=== PATIENT | female | born 1985 | race Caucasian/White ===

== ENCOUNTER 2023-10-05 10:01 | Outpatient (RCR) | payer BC, SELFPAY | END 2023-10-05 23:59 | disposition home or self-care (01) | LOC: RPT 10:01 | PROVIDERS: ATTENDING PHYSICIAN Advanced Practice Midwife; FAMILY PHYSICIAN Nurse Practitioner Adult Health | DX: M62.00 Separation of muscle (nontraumatic), unspecified site (principal); N81.84 Pelvic muscle wasting; R10.33 Periumbilical pain; M62.89 Other specified disorders of muscle; N39.3 Stress incontinence (female) (male); Z73.6 Limitation of activities due to disability | CPT/HCPCS: 97110; 97112; 97162; 97530 ==

== ENCOUNTER → 2023-10-11 15:56 | Outpatient (REF) | payer BC, SELFPAY ==
[2023-10-11 16:56] LABS: % Basophils 0.4 % (0-2); % Eosinophils 0.7 % (0-6); % Immature Granulocytes 0.2 % (0-0.5); % Lymphocytes 33.3 % (20.5-51.1); % Monocytes 8.4 % (1.7-9.3); Absolute Lymphocytes 1.8 10^3/uL (1.2-3.4); Absolute Monocytes 0.5 10^3/uL (0.1-0.6); Absolute Neutrophils 3.1 10^3/uL (1.4-6.5); Hematocrit 33.3 % (37.0-47.0); Hemoglobin 11.5 g/dL (12.0-16.0); Mean Corp Hgb Conc. 34.5 g/dL (33.0-37.0); Mean Corpuscular Hgb 31.4 pg (27.0-31.0); Mean Platelet Volume 9.9 fL (7.4-10.4); Nucleated Red Blood Cells % 0 %; Platelet Count 265 10^3/uL (130-400); Red Blood Cell Count 3.66 10^6/uL (4.20-5.40); Red Cell Dist. Width 11.8 % (11.5-14.5); White Blood Cell Count 5.4 10^3/uL (4.8-10.8)
[2023-10-11 16:57] LABS: Urine Albumin Negative (Neg - Trace); Urine Bilirubin Negative (Negative); Urine Character Clear (Clear); Urine Color Yellow; Urine Glucose Negative (Negative); Urine Ketone Negative (Negative); Urine Leukocyte Negative (Negative); Urine Nitrite Negative (Negative); Urine Occult Blood Negative (Negative); Urine Specific Gravity 1.025 (<1.030); Urine Urobilinogen Negative (Neg - 1+)
[2023-10-11 17:37] LABS: Vitamin D, 25-OH*** 34.9 ng/mL (30-80)
[2023-10-11 17:47] LABS: Rubella Positive
[2023-10-11 17:52] LABS: Hepatitis B Surface Antigen Negative (Negative)
[2023-10-11 18:10] LABS: Hepatitis C Antibody Negative (Negative)
[2023-10-11 18:18] LABS: HIV Combo Negative (Negative)
[2023-10-11 18:26] LABS: Folate 18.7 ng/ml (2.76-20); Vitamin B12 465 pg/ml (239-931)
[2023-10-14 17:18] LABS: Syphilis/T. pallidum Ab Reflex Negative (Negative)
== END ==
LOC: REG 15:56
PROVIDERS: ATTENDING PHYSICIAN Nurse Practitioner Adult Health; FAMILY PHYSICIAN Advanced Practice Midwife
DX: Z34.90 Encounter for supervision of normal pregnancy, unspecified, unspecified trimester (principal); F32.0 Major depressive disorder, single episode, mild; E53.9 Vitamin B deficiency, unspecified
CPT/HCPCS: 36415; 80055; 81003; 82306; 82607; 82746; 84702; 86803; 86850; 86900; 86901; 87086; 87389

== ENCOUNTER → 2023-10-20 08:57 | Outpatient (REF) | payer BC, SELFPAY | LOC: PNTC 08:57 | PROVIDERS: Advanced Practice Midwife; ATTENDING PHYSICIAN Obstetrics & Gynecology | DX: Z36.0 Encounter for antenatal screening for chromosomal anomalies (principal); Z36.82 Encounter for antenatal screening for nuchal translucency | CPT/HCPCS: 36415; 76801; 76813 ==

== ENCOUNTER 2023-11-02 06:54 | Outpatient (RCR) | payer BC, SELFPAY | END 2023-11-02 23:59 | disposition home or self-care (01) | LOC: RPT 06:54 | PROVIDERS: ATTENDING PHYSICIAN Advanced Practice Midwife; FAMILY PHYSICIAN Nurse Practitioner Adult Health | DX: M62.00 Separation of muscle (nontraumatic), unspecified site (principal); N81.84 Pelvic muscle wasting; R10.33 Periumbilical pain; M62.89 Other specified disorders of muscle; N39.3 Stress incontinence (female) (male); Z73.6 Limitation of activities due to disability | CPT/HCPCS: 97110; 97112 ==

== ENCOUNTER → 2023-12-02 11:49 | Outpatient (REF) | payer BC, SELFPAY | LOC: REG 11:49 | PROVIDERS: ATTENDING PHYSICIAN Advanced Practice Midwife; FAMILY PHYSICIAN Nurse Practitioner Adult Health | DX: Z34.90 Encounter for supervision of normal pregnancy, unspecified, unspecified trimester (principal) | CPT/HCPCS: 36415; 82105 ==

== ENCOUNTER → 2023-12-05 11:15 | Outpatient (REF) | payer BC, SELFPAY ==
[2023-12-07 17:08] LABS: AFP Multiple of Median (MoM) 1.29; Dating Other; Family Neural Tube Defect Hx No; Insulin Req Maternal Diabetes No; Maternal Age at Delivery 37.6 yr; Maternal Race Nonblack; Maternal Screen Interpretation Screen Neg; Maternal Weight 167.0 lbs.; Number of Fetuses Singleton; Patient's AFP Concentration 62 ng/mL; Smoking No
== END ==
LOC: REG 11:15
PROVIDERS: ATTENDING PHYSICIAN Advanced Practice Midwife
DX: Z34.90 Encounter for supervision of normal pregnancy, unspecified, unspecified trimester (principal)
CPT/HCPCS: 82105

== ENCOUNTER 2023-12-05 12:15 | Outpatient (RCR) | payer BC, SELFPAY | END 2023-12-05 23:59 | disposition home or self-care (01) | LOC: RPT 12:15 | PROVIDERS: ATTENDING PHYSICIAN Advanced Practice Midwife; FAMILY PHYSICIAN Nurse Practitioner Adult Health | DX: N81.84 Pelvic muscle wasting (principal); M62.00 Separation of muscle (nontraumatic), unspecified site; M62.89 Other specified disorders of muscle; N39.3 Stress incontinence (female) (male); Z73.6 Limitation of activities due to disability | CPT/HCPCS: 97110; 97140 ==

== ENCOUNTER → 2023-12-19 18:50 | Outpatient (REF) | payer BC, SELFPAY | LOC: CLAB 18:50 | PROVIDERS: ATTENDING PHYSICIAN Nurse Practitioner Adult Health | DX: J02.9 Acute pharyngitis, unspecified (principal) | CPT/HCPCS: 87070 ==

== ENCOUNTER → 2023-12-20 08:59 | Outpatient (REF) | payer BC, SELFPAY | LOC: PNTC 08:59 | PROVIDERS: ATTENDING PHYSICIAN Advanced Practice Midwife | DX: O09.529 Supervision of elderly multigravida, unspecified trimester (principal) | CPT/HCPCS: 76811 ==

== ENCOUNTER 2024-01-05 06:33 | Outpatient (RCR) | payer BC, SELFPAY | END 2024-01-05 23:59 | disposition home or self-care (01) | LOC: RPT 06:33 | PROVIDERS: ATTENDING PHYSICIAN Advanced Practice Midwife; FAMILY PHYSICIAN Nurse Practitioner Adult Health | DX: M62.00 Separation of muscle (nontraumatic), unspecified site (principal); N81.84 Pelvic muscle wasting; R10.33 Periumbilical pain; Z73.6 Limitation of activities due to disability; M62.89 Other specified disorders of muscle; N39.3 Stress incontinence (female) (male) | CPT/HCPCS: 97110; 97112 ==

== ENCOUNTER 2024-01-30 13:15 | Outpatient (RCR) | payer BC, SELFPAY | END 2024-01-30 23:59 | disposition home or self-care (01) | LOC: RPT 13:15 | PROVIDERS: ATTENDING PHYSICIAN Advanced Practice Midwife; FAMILY PHYSICIAN Nurse Practitioner Adult Health | DX: N81.84 Pelvic muscle wasting (principal); M62.08 Separation of muscle (nontraumatic), other site | CPT/HCPCS: 97110; 97112 ==

== ENCOUNTER → 2024-02-01 07:55 | Outpatient (REF) | payer BC, SELFPAY ==
[2024-02-01 09:41] LABS: % Basophils 0.4 % (0-2); % Eosinophils 0.9 % (0-6); % Immature Granulocytes 0.2 % (0-0.5); % Lymphocytes 27.5 % (20.5-51.1); % Monocytes 5.8 % (1.7-9.3); % Neutrophils 65.2 % (42.2-75.2); Absolute Lymphocytes 1.3 10^3/uL (1.2-3.4); Absolute Monocytes 0.3 10^3/uL (0.1-0.6); Hematocrit 33.4 % (37.0-47.0); Hemoglobin 11.2 g/dL (12.0-16.0); Mean Corp Hgb Conc. 33.5 g/dL (33.0-37.0); Mean Corpuscular Hgb 32.2 pg (27.0-31.0); Mean Platelet Volume 10.1 fL (7.4-10.4); Nucleated Red Blood Cells % 0 %; Platelet Count 263 10^3/uL (130-400); Red Blood Cell Count 3.48 10^6/uL (4.20-5.40); Red Cell Dist. Width 12.9 % (11.5-14.5); White Blood Cell Count 4.6 10^3/uL (4.8-10.8)
[2024-02-01 11:31] LABS: 1 Hour after 50gm 113 mg/dl
[2024-02-03 16:30] LABS: Syphilis/T. pallidum Ab Reflex Negative (Negative)
== END ==
LOC: REG 07:55
PROVIDERS: ATTENDING PHYSICIAN Advanced Practice Midwife; FAMILY PHYSICIAN Nurse Practitioner Adult Health
DX: Z34.90 Encounter for supervision of normal pregnancy, unspecified, unspecified trimester (principal)
CPT/HCPCS: 36415; 82950; 85025; 86780

== ENCOUNTER → 2024-02-06 09:58 | Outpatient (REF) | payer BC, SELFPAY | LOC: PNTC 09:58 | PROVIDERS: ATTENDING PHYSICIAN Advanced Practice Midwife | DX: O09.529 Supervision of elderly multigravida, unspecified trimester (principal) | CPT/HCPCS: 76816 ==

== ENCOUNTER 2024-02-20 08:31 | Outpatient (RCR) | payer BC, SELFPAY | END 2024-02-20 23:59 | disposition home or self-care (01) | LOC: RPT 08:31 | PROVIDERS: ATTENDING PHYSICIAN Advanced Practice Midwife; FAMILY PHYSICIAN Nurse Practitioner Adult Health | DX: M62.08 Separation of muscle (nontraumatic), other site (principal); N81.84 Pelvic muscle wasting; R10.33 Periumbilical pain; M62.89 Other specified disorders of muscle; N39.3 Stress incontinence (female) (male) | CPT/HCPCS: 97110; 97112 ==

== ENCOUNTER 2024-03-16 13:15 | Outpatient (RCR) | payer BC, SELFPAY | END 2024-03-16 23:59 | disposition home or self-care (01) | LOC: RPT 13:15 | PROVIDERS: ATTENDING PHYSICIAN Advanced Practice Midwife; FAMILY PHYSICIAN Nurse Practitioner Adult Health | DX: N81.84 Pelvic muscle wasting (principal); M62.00 Separation of muscle (nontraumatic), unspecified site; R10.33 Periumbilical pain; Z73.6 Limitation of activities due to disability | CPT/HCPCS: 97110; 97112 ==

== ENCOUNTER → 2024-03-19 10:03 | Outpatient (REF) | payer BC, SELFPAY | LOC: PNTC 10:03 | PROVIDERS: ATTENDING PHYSICIAN Advanced Practice Midwife | DX: O09.519 Supervision of elderly primigravida, unspecified trimester (principal) | CPT/HCPCS: 76816 ==

== ENCOUNTER → 2024-04-02 12:44 | Outpatient (REF) | payer BC, SELFPAY ==
[2024-04-03 11:22] LABS: % Basophils 0.9 % (0-2); % Eosinophils 0.9 % (0-6); % Immature Granulocytes 0.2 % (0-0.5); % Lymphocytes 29.8 % (20.5-51.1); % Monocytes 8.4 % (1.7-9.3); % Neutrophils 59.8 % (42.2-75.2); Absolute Lymphocytes 1.4 10^3/uL (1.2-3.4); Absolute Monocytes 0.4 10^3/uL (0.1-0.6); Absolute Neutrophils 2.8 10^3/uL (1.4-6.5); Hematocrit 33.1 % (37.0-47.0); Hemoglobin 11.7 g/dL (12.0-16.0); Mean Corp Hgb Conc. 35.3 g/dL (33.0-37.0); Mean Corpuscular Hgb 32.9 pg (27.0-31.0); Mean Platelet Volume 11.1 fL (7.4-10.4); Nucleated Red Blood Cells % 0 %; Platelet Count 239 10^3/uL (130-400); Red Blood Cell Count 3.56 10^6/uL (4.20-5.40); Red Cell Dist. Width 12.7 % (11.5-14.5); White Blood Cell Count 4.7 10^3/uL (4.8-10.8)
[2024-04-03 11:42] LABS: ALT (SGPT) 21 U/L (0-35); AST (SGOT) 25 U/L (14-36); Albumin 3.3 g/dl (3.5-5.0); Alkaline Phosphatase 196 U/L (38-126); Blood Urea Nitrogen 9 mg/dl (7-17); Calcium 9.5 mg/dl (8.4-10.2); Carbon Dioxide 18 mmol/L (22-30); Chloride 107 mmol/L (98-107); Glucose 96 mg/dl (70-99); Potassium 4.8 mmol/L (3.5-5.1); Sodium 135 mmol/L (135-145); Total Bilirubin 0.3 mg/dl (0.2-1.3); eGFR > 60.00
[2024-04-03 12:45] LABS: TSH Reflex To Free T4 2.64 uIU/ml (0.47-4.68)
[2024-04-03 13:04] LABS: Vitamin B12 290 pg/ml (239-931)
[2024-04-03 15:04] LABS: Vitamin D, 25-OH*** 29.4 ng/mL (30-80)
== END ==
LOC: REG 12:44
PROVIDERS: ATTENDING PHYSICIAN Nurse Practitioner Adult Health; REFERRING PHYSICIAN Advanced Practice Midwife
DX: E55.9 Vitamin D deficiency, unspecified (principal); D72.819 Decreased white blood cell count, unspecified; E53.9 Vitamin B deficiency, unspecified; Z00.00 Encounter for general adult medical examination without abnormal findings; Z13.220 Encounter for screening for lipoid disorders; Z13.29 Encounter for screening for other suspected endocrine disorder; E87.5 Hyperkalemia; Z36.85 Encounter for antenatal screening for Streptococcus B; O09.523 Supervision of elderly multigravida, third trimester
CPT/HCPCS: 36415; 80053; 82306; 82607; 84443; 85025; 87070

== ENCOUNTER 2024-04-15 21:54 | Observation (INO) | payer BC, SELFPAY | END 2024-04-15 22:46 | disposition home or self-care (01) | LOC: LDRP 21:54 | PROVIDERS: ADMITTING PHYSICIAN Obstetrics & Gynecology; FAMILY PHYSICIAN Nurse Practitioner Adult Health; REFERRING PHYSICIAN Advanced Practice Midwife | DX: O47.1 False labor at or after 37 completed weeks of gestation (principal); Z3A.37 37 weeks gestation of pregnancy; R10.9 Unspecified abdominal pain; K42.9 Umbilical hernia without obstruction or gangrene; R32 Unspecified urinary incontinence; Z88.5 Allergy status to narcotic agent; Z88.8 Allergy status to other drugs, medicaments and biological substances | CPT/HCPCS: 86850; 86900; 86901; G0378 ==

== ENCOUNTER 2024-04-20 08:44 | Inpatient (IN) | payer BC, SELFPAY ==
[2024-04-20 09:01] VITALS: BP 115/65; BMI 29.9
[2024-04-20 09:48] LABS: % Basophils 0.7 % (0-2); % Eosinophils 0.4 % (0-6); % Immature Granulocytes 0.3 % (0-0.5); % Lymphocytes 24.6 % (20.5-51.1); % Monocytes 7.2 % (1.7-9.3); % Neutrophils 66.8 % (42.2-75.2); Absolute Basophils 0.1 10^3/uL (0-0.2); Absolute Lymphocytes 1.6 10^3/uL (1.2-3.4); Absolute Monocytes 0.5 10^3/uL (0.1-0.6); Absolute Neutrophils 4.5 10^3/uL (1.4-6.5); Hematocrit 34.5 % (37.0-47.0); Hemoglobin 11.9 g/dL (12.0-16.0); Mean Corp Hgb Conc. 34.5 g/dL (33.0-37.0); Mean Corpuscular Hgb 31.5 pg (27.0-31.0); Mean Corpuscular Volume 91.3 fL (81.0-99.0); Mean Platelet Volume 10.8 fL (7.4-10.4); Nucleated Red Blood Cells % 0 %; Platelet Count 285 10^3/uL (130-400); Red Blood Cell Count 3.78 10^6/uL (4.20-5.40); Red Cell Dist. Width 12.5 % (11.5-14.5); White Blood Cell Count 6.7 10^3/uL (4.8-10.8)
[2024-04-20] MEDS: LR 1000 IV (14:33)
[2024-04-20] MEDS: PITOCIN 30 UNITS/NSS 500 ML IV (14:34)
[2024-04-20] MEDS: SUBLIMAZE 100 MCG EPIDURAL (15:57)
[2024-04-20] MEDS: FENTANYL/BUPIVACAINE 100 EPIDURAL (15:57)
[2024-04-20] MEDS: LEXAPRO 5 MG PO (21:46)
[2024-04-20] MEDS: MOTRIN 600 MG PO (22:46)
[2024-04-20] MEDS: TYLENOL 650 MG PO (23:13)
[2024-04-21] MEDS: MOTRIN 600 MG PO ×3 (05:06→19:51)
[2024-04-21] MEDS: TYLENOL 650 MG PO ×2 (05:06→19:51)
[2024-04-21] MEDS: SENOKOT-S 1 TABLET PO (12:27)
[2024-04-21] MEDS: LEXAPRO 5 MG PO (22:07)
[2024-04-22] MEDS: TYLENOL 650 MG PO (03:43)
[2024-04-22] MEDS: MOTRIN 600 MG PO (03:43)
[2024-04-24 11:25] LABS: Syphilis/T. pallidum Ab Reflex Negative (Negative)
== END 2024-04-22 11:15 | disposition home or self-care (01) | DRG 807 ==
LOC: LDRP 08:44
PROVIDERS: ADMITTING PHYSICIAN Advanced Practice Midwife
PROC: 0HQ9XZZ Repair Perineum Skin, External Approach (ICD-10-PCS; 2024-04-20)
PROC: 10E0XZZ Delivery of Products of Conception, External Approach (ICD-10-PCS; 2024-04-20)
DX: O69.81X0 Labor and delivery complicated by cord around neck, without compression, not applicable or unspecified (principal); Z37.0 Single live birth; Z3A.38 38 weeks gestation of pregnancy; O70.0 First degree perineal laceration during delivery
CPT/HCPCS: 88307; 85025; 86780; 86850; 86900; 86901; 87491; 87591

== ENCOUNTER 2024-06-27 13:07 | Outpatient (RCR) | payer BC, SELFPAY | END 2024-06-27 23:59 | disposition home or self-care (01) | LOC: RPT 13:07 | PROVIDERS: ATTENDING PHYSICIAN Advanced Practice Midwife; FAMILY PHYSICIAN Nurse Practitioner Adult Health | DX: M62.00 Separation of muscle (nontraumatic), unspecified site (principal); N81.84 Pelvic muscle wasting; R10.33 Periumbilical pain; Z39.2 Encounter for routine postpartum follow-up; M62.89 Other specified disorders of muscle; N39.3 Stress incontinence (female) (male) | CPT/HCPCS: 97110; 97112; 97164 ==

== ENCOUNTER 2024-07-30 12:59 | Outpatient (RCR) | payer BC, SELFPAY | END 2024-07-30 23:59 | disposition home or self-care (01) | LOC: RPT 12:59 | PROVIDERS: ATTENDING PHYSICIAN Advanced Practice Midwife; FAMILY PHYSICIAN Nurse Practitioner Adult Health | DX: M62.00 Separation of muscle (nontraumatic), unspecified site (principal); N81.84 Pelvic muscle wasting; R10.33 Periumbilical pain; Z39.2 Encounter for routine postpartum follow-up; Z73.6 Limitation of activities due to disability; M62.89 Other specified disorders of muscle; N39.3 Stress incontinence (female) (male) | CPT/HCPCS: 97110; 97112 ==

== ENCOUNTER 2024-09-03 13:21 | Outpatient (RCR) | payer BC, SELFPAY | END 2024-09-03 23:59 | disposition home or self-care (01) | LOC: RPT 13:21 | PROVIDERS: ATTENDING PHYSICIAN Advanced Practice Midwife; FAMILY PHYSICIAN Nurse Practitioner Adult Health | DX: M62.00 Separation of muscle (nontraumatic), unspecified site (principal); N81.84 Pelvic muscle wasting; R10.33 Periumbilical pain; Z39.2 Encounter for routine postpartum follow-up; M62.89 Other specified disorders of muscle; N39.3 Stress incontinence (female) (male); Z73.6 Limitation of activities due to disability | CPT/HCPCS: 97110; 97112 ==

== ENCOUNTER 2024-09-12 07:35 | Outpatient (RCR) | payer BC, SELFPAY | END 2024-09-12 23:59 | disposition home or self-care (01) | LOC: RPT 07:35 | PROVIDERS: ATTENDING PHYSICIAN Advanced Practice Midwife; FAMILY PHYSICIAN Nurse Practitioner Adult Health | DX: M62.00 Separation of muscle (nontraumatic), unspecified site (principal); N81.84 Pelvic muscle wasting; R10.33 Periumbilical pain; Z39.2 Encounter for routine postpartum follow-up; M62.89 Other specified disorders of muscle; N39.3 Stress incontinence (female) (male); Z73.6 Limitation of activities due to disability | CPT/HCPCS: 97110; 97112; 97530 ==